=== PATIENT | male | born 1945 ===

== ENCOUNTER 2017-04-15 07:33 | Day surgery (SDC) | payer OTHER ==
[2017-04-15] MEDS ORDERED: ASPIRIN EC 325 MG TAB PO ONE ×2 (07:37→08:16)
[2017-04-15] MEDS ORDERED: diphenhydrAMINE 25 MG CAP PO ONE ×2 (07:37→08:15)
[2017-04-15] MEDS ORDERED: FAMOTIDINE 20 MG TAB PO ONE (07:37)
[2017-04-15] MEDS ORDERED: DIAZEPAM 5 MG TAB PO ONE (07:37)
[2017-04-15] MEDS ORDERED: NS 1,000 ML IV ONE (07:37)
--- NOTE | 2017-04-15 08:02 | CPEKG ---
Heart Rate: 56 RR Interval: 1071 P-R Interval: 248 QRSD Interval: 98 QT Interval: 472 QTC Interval: 456 P Ophir: 56 QRS Ophir: 28 T Wave Ophir: 139 EKG Severity - ABNORMAL ECG - EKG Impression: SINUS RHYTHM EKG Impression: FIRST DEGREE AV BLOCK EKG Impression: REPOL ABNRM SUGGESTS ISCHEMIA, ANT-LAT LEADS Electronically Signed By: Renzo Ingram 15-Apr-2017 08:13:59
[2017-04-15] MEDS ORDERED: FAMOTIDINE 20 MG TAB ONE (08:16)
[2017-04-15] MEDS ORDERED: DIAZEPAM 5 MG TAB ONE (08:16)
[2017-04-15 08:38] LABS: % IMMATURE GRANULYOCYTES 0.2 % (0.0-1.1); ABSOLUTE IMMATURE GRANULOCYTES 0.01 10^3/uL (0.00-0.10); ADD DIFF? NO; ADD MORPH? NO; ADD SCAN? NO; ATYPICAL LYMPHOCYTE FLAG 10 (0-99); FRAGMENT RBC FLAG 0 (0-99); HEMATOCRIT 43.6 % (40.0-51.0); HEMOGLOBIN 15.1 g/dL (13.7-17.5); LEFT SHIFT FLG 0 (0-99); LIPEMIA HEMOLYSIS FLAG 90 (0-99); MEAN CELL HEMOGLOBIN 31.5 pg (27.9-34.1); MEAN CELL HEMOGLOBIN CONCENTR. 34.6 g/dL (32.4-36.7); MEAN PLATELET VOLUME 10.3 fL (8.7-11.7); PLATELET CLUMPS FLAG 10 (0-99); PLATELET COUNT 162 10^3/uL (150-400); RED BLOOD CELL COUNT 4.79 10^6/uL (4.40-6.38); RED CELL DISTRIBUTION WIDTH 12.4 % (11.5-15.2)
[2017-04-15 08:48] LABS: PROTIME(PATIENT) 13.1 SEC (12.0-15.0)
[2017-04-15 08:55] LABS: ANION GAP 14 mEq/L (8-16); CALCIUM 9.2 mg/dL (8.5-10.4); CARBON DIOXIDE 24 mEq/l (22-31); CHLORIDE 104 mEq/L (97-110); CHOLESTEROL 126 mg/dL (140-220); CREATININE 0.9 mg/dL (0.7-1.3); GLOMERULAR FILTRATION RATE > 60; GLUCOSE 154 mg/dL (70-100); HIGH DENSITY LIPOPROTEIN 30 mg/dL (40-65); LDL/HDL RATIO 1.97 RATIO (1.00-3.64); LOW DENSITY LIPOPROTEIN 59 mg/dL (80-100); MAGNESIUM 1.9 mg/dL (1.6-2.3); NON-HIGH DENSITY LIPOPROTEIN 96 mg/dL (90-129); POTASSIUM 4.6 mEq/L (3.5-5.2); SODIUM 142 mEq/L (134-144); TRIGLYCERIDE 187 mg/dL (40-150); VERY LOW DENSITY LIPOPROTEINS 37 mg/dL (8-25)
[2017-04-15] MEDS ORDERED: MIDAZOLAM 2 MG/2 ML VIAL ONE (09:03)
[2017-04-15] MEDS ORDERED: fentaNYL 100 MCG/2 ML INJ ONE (09:03)
[2017-04-15] MEDS ORDERED: LIDOCAINE 1% 300 MG/30 ML SDV ONE (09:03)
[2017-04-15] MEDS ORDERED: HEPARIN 10,000 UNIT/10 ML MDV ONE (09:04)
[2017-04-15] MEDS ORDERED: IOPAMIDOL (ISOVUE-370) 150 ML BTL IV ONE (09:04)
[2017-04-15] MEDS ORDERED: VERAPAMIL 5 MG/2 ML VIAL ONE (09:04)
--- NOTE | 2017-04-15 09:52 | PDPROPOC ---
Sedation Plan of Care Sedation Plan of Care: vital signs stable, mental status noted, patient educated of risks, benefits, alternatives, patient can tolerate sedation ASA Classification: ASA 3 Planned drugs: fentanyl, midazolam Mallampati Score: Class 3 Mallampati Reference Image: Patient passed 3-3-2 rule?: Yes
--- NOTE | 2017-04-15 09:52 | PDHPUP ---
History & Physical Update H&P update statement: This history and physical update is based on an assessment of the patient which was completed after admission or registration (within 24 hours), but prior to the surgery/procedure. H&P update: H&P reviewed & patient examined, no change in patient's condition since H&P completed
--- NOTE | 2017-04-15 10:08 | PDDXCAT ---
Diagnostic Cath Note - . Date: 04/15/17 Life Coach: Sandra Indication: other (Abnormal resting EKG) - Procedure Access: left wrist Procedure: left heart catheterization - Materials Left Heart Cath size: 5F Left Heart Cath materials: standard multipack (JL4, JR4, pigtail), Ravinder's R - Findings-Left Heart Catheterization LM: It is 8mm in size and bifurcates into an LAD and circumflex system. LAD: It is 4.5mm in size. No flow limiting CAD/obstuction is identified. There is CUAUHTEMOC III flow throughout. LCX: It is 4mm in size. It gives rise to the obtuse maginal and to a posterior descending artery. This is a codominant system. RCA: It is 3.5mm in size and arises anamanolously and anteriorly from the right coronary cusp. This is a codominant system. No evidence of flow limiting coronary disease. CUAUHTEMOC III flow throughout. EDP: LVEDP is 20 mmHg. LVEF: It is 65%. Mild mid-anterior wall hypokinesis. The papillary muscles are prominant and there is apical cavity obliteration consistent with an apical hypertrophe. There is 2+ mitral regurigtation with pressurized injection. The visualized portion of the the thoracic aorta reaveals 3 sinues of Valsalva which is most consistent with a trileaflet aortic valve. The aorta appears to be normal in calliber without ezekiel aneurysm or dissection. Complications: NONE. Estimated blood loss: <50ml Closure method: TR Band Assessment: The patient has a codominant coronary system with no evidence of flow limiting obstruction, dissection, or thrombus. 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 Plan: The patient should be carefully monitored and treated to avoid hypertension or dehydration. Consider echocardiogram to track the apical thickness of the left ventricle.
[2017-04-15] MEDS ORDERED: ONDANSETRON 4 MG/2 ML VIAL IVP PRN (11:07)
[2017-04-15] MEDS ORDERED: OXYCODONE/APAP 5/325 TAB PO PRN (11:07)
[2017-04-15] MEDS ORDERED: HYDROCODONE/APAP 5/325 TAB PO PRN (11:07)
[2017-04-15] MEDS ORDERED: ATROPINE SULFATE 1 MG/10 ML SYR IVP PRN (11:07)
[2017-04-15] MEDS ORDERED: NITROGLYCERIN 0.4 MG BTL SL PRN (11:07)
== END 2017-04-15 14:30 | disposition home or self-care (01) ==
LOC: FCATH 07:33
PROVIDERS: ATTEND Internal Medicine Cardiovascular Disease
PROC: B2111ZZ Fluoroscopy of Multiple Coronary Arteries using Low Osmolar Contrast (ICD-10-PCS; principal; 2017-04-15)
PROC: 4A023N7 Measurement of Cardiac Sampling and Pressure, Left Heart, Percutaneous Approach (ICD-10-PCS; principal; 2017-04-15)
PROC: B2151ZZ Fluoroscopy of Left Heart using Low Osmolar Contrast (ICD-10-PCS; principal; 2017-04-15)
DX: I42.2 Other hypertrophic cardiomyopathy (principal); I35.9 Nonrheumatic aortic valve disorder, unspecified; E78.5 Hyperlipidemia, unspecified; R06.09 Other forms of dyspnea; E11.9 Type 2 diabetes mellitus without complications
CPT/HCPCS: J1644; J2250; J3010; Q9967

== ENCOUNTER → 2018-11-23 | Outpatient (CLI) | payer OTHER, MEDICARE | LOC: BHFA 08:30 | PROVIDERS: ATTEND Internal Medicine Cardiovascular Disease | DX: R94.31 Abnormal electrocardiogram [ECG] [EKG] (principal) | CPT/HCPCS: 78452; 93017; A9500 ==